=== PATIENT | male | born 1960 | race Caucasian/White ===

== ENCOUNTER 2016-10-13 08:00 | Outpatient (CLI) | payer MEDICAID | END 2016-10-13 23:59 | DX: R30.0 Dysuria (principal) ==

== ENCOUNTER 2017-02-12 14:10 | Outpatient (CLI) | payer MEDICAID ==
--- NOTE | 2017-02-12 16:10 | XRAY Report ---
THREE VIEW RIGHT ANKLE: 02/12/2017 CLINICAL INDICATION: Pain. FINDINGS: AP, lateral, and oblique views of the right ankle demonstrate no evidence of fracture or d islocation. The joint spaces are preserved. No radiopaque foreign body is seen in the soft tissues. IMPRESSION: NORMAL RIGHT ANKLE. :9 JOB #: [id number] EXT JOB #:[id number]
--- NOTE | 2017-02-12 16:14 | XRAY Report ---
THREE VIEW RIGHT FOOT: 02/12/2017 CLINICAL INDICATION: Pain. FINDINGS: AP, lateral, and oblique views of the right foot demonstrate no evidence of fracture or di slocation. The joint spaces are preserved. No radiopaque foreign body is seen in the soft tissues. IMPRESSION: NORMAL RIGHT FOOT. JOB #: [id number] EXT JOB #:[id number]
== END 2017-02-12 14:11 | disposition home or self-care (01) ==
LOC: DI.S 14:10
PROVIDERS: ATTEND Nurse Practitioner Family
DX: M25.571 Pain in right ankle and joints of right foot (principal)

== ENCOUNTER 2017-11-20 08:00 | Outpatient (CLI) | payer MEDICAID | END 2017-11-20 08:01 | disposition home or self-care (01) | LOC: LAB.R 08:00 | PROVIDERS: ATTEND Nurse Practitioner Family | DX: R30.0 Dysuria (principal) | CPT/HCPCS: 87491; 87591 ==

== ENCOUNTER 2017-11-23 08:35 | Outpatient (CLI) | payer MEDICAID ==
[2017-11-23 18:15] LABS: ALBUMIN 4.7 g/dL (3.2-5.5); ALBUMIN/GLOBULIN RATIO 1.8 (1.0-2.2); ALKALINE PHOSPHATASE 53 IU/L (42-121); ALT ALANINE AMINOTRANSFERASE 26 IU/L (10-60); AST ASPARTATE AMINOTRANSFERASE 36 IU/L (10-42); BILIRUBIN,TOTAL 1.6 mg/dL (0.2-1.0); BUN - BLOOD UREA NITROGEN 24 mg/dL (6-20); CALCIUM 9.3 mg/dL (8.5-10.3); CARBON DIOXIDE - CO2 28 mmol/L (21-32); CHLORIDE 102 mmol/L (101-111); CHOL/HDL RATIO 4.1 (<5.0); CHOLESTEROL 168 mg/dL; CREATININE 1.2 mg/dL (0.6-1.2); GFR - MDRD 62 (>89); GLUCOSE 84 mg/dL (70-100); HDL CHOLESTEROL 41 mg/dL; LDL CHOLESTEROL,CALCULATED 116 mg/dL; LDL/HDL RATIO 2.8 (<3.6); SODIUM 137 mmol/L (135-145); TOTAL PROTEIN 7.3 g/dL (6.7-8.2); VLDL CHOLESTEROL 11 mg/dL
== END 2017-11-23 08:36 | disposition home or self-care (01) ==
LOC: LAB.F 08:35
PROVIDERS: ATTEND Nurse Practitioner Family
DX: K74.0 Hepatic fibrosis (principal); Z13.1 Encounter for screening for diabetes mellitus; Z13.220 Encounter for screening for lipoid disorders; Z12.5 Encounter for screening for malignant neoplasm of prostate; R30.0 Dysuria
CPT/HCPCS: 36415; 80053; 80061; 83721; 84153; 87491; 87591

== ENCOUNTER 2018-01-07 10:09 | Outpatient (CLI) | payer MEDICAID ==
[2018-01-07 18:08] LABS: BASOPHILS # (AUTO) 0.1 10^3/uL (0.0-0.1); BASOPHILS % (AUTO) 0.8 %; EOSINOPHILS # (AUTO) 0.1 10^3/uL (0.0-0.7); EOSINOPHILS % (AUTO) 1.1 %; HGB - HEMOGLOBIN 15.2 g/dL (14.0-18.0); LYMPHOCYTES # (AUTO) 2.8 10^3/uL (1.5-3.5); LYMPHOCYTES % (AUTO) 42.1 %; MEAN CORPUSCULAR HEMOGLOBIN 31.7 pg (27.0-31.0); MEAN CORPUSCULAR HGB CONC 33.7 g/dL (32.0-36.0); MEAN PLATELET VOLUME 10.9 fL (7.4-11.4); MONOCYTES # (AUTO) 0.6 10^3/uL (0.0-1.0); MONOCYTES % (AUTO) 8.5 %; NEUTROPHILS # (AUTO) 3.1 10^3/uL (1.5-6.6); NEUTROPHILS % (AUTO) 47.5 %; PLT - PLATELET COUNT 142 10^3/uL (130-450); RED CELL DISTRIBUTION WIDTH 13.5 % (12.0-15.0); WHITE BLOOD COUNT 6.6 x10^3/uL (4.8-10.8)
[2018-01-07 18:21] LABS: ALBUMIN 4.2 g/dL (3.2-5.5); BILIRUBIN,DIRECT 0.2 mg/dL (0.1-0.5); BILIRUBIN,TOTAL 1.2 mg/dL (0.2-1.0); TOTAL PROTEIN 7.2 g/dL (6.7-8.2)
== END 2018-01-07 10:10 | disposition home or self-care (01) ==
LOC: LAB.S 10:09
PROVIDERS: ATTEND Nurse Practitioner Family
DX: K74.0 Hepatic fibrosis (principal); R59.1 Generalized enlarged lymph nodes
CPT/HCPCS: 36415; 80076; 85025

== ENCOUNTER 2018-01-20 14:33 | Outpatient (CLI) | payer MEDICAID ==
--- NOTE | 2018-01-20 19:07 | Ultrasound Report ---
Procedure Date: 01/20/2018 Accession Number: [id number] / [id number] Procedure: US - Pelvic Limited or F/U CPT Code: FULL RESULT: EXAM: INGUINAL ULTRASOUND EXAM DATE: 01/20/2018 03:12 PM. CLINICAL HISTORY: Left inguinal pain. COMPARISON: None. TECHNIQUE: Real-time sonographic imaging of the inguinal canals and vascular structures, including color-flow, was performed by the leather grainer. Multiple benefits representative static images were saved for review. FINDINGS: Hernia: Left inguinal defect measures approximately 0.9 cm. The fat-containing hernia measures approximately 1.4 x 1 cm. No incarcerated bowel. Soft Tissues: Normal. No fluid collections or adenopathy. Other: None. IMPRESSION: Ultrasound is positive for a left inguinal hernia with defect measuring 0.9 cm and the fat-containing hernia measuring 1.4 x 1 cm. RADIA
== END 2018-01-20 14:34 | disposition home or self-care (01) ==
LOC: DI 14:33
PROVIDERS: ATTEND Nurse Practitioner Family
DX: K40.90 Unilateral inguinal hernia, without obstruction or gangrene, not specified as recurrent (principal)
CPT/HCPCS: 76857

== ENCOUNTER 2018-07-29 12:15 | Outpatient (CLI) | payer MEDICAID ==
[2018-07-29 18:59] LABS: ALBUMIN 4.5 g/dL (3.2-5.5); ALBUMIN/GLOBULIN RATIO 1.9 (1.0-2.2); BILIRUBIN,TOTAL 0.8 mg/dL (0.2-1.0); CALCIUM 9.1 mg/dL (8.5-10.3); TOTAL PROTEIN 6.9 g/dL (6.7-8.2)
== END 2018-07-29 12:16 | disposition home or self-care (01) ==
LOC: LAB.F 12:15
PROVIDERS: ATTEND Internal Medicine
DX: B18.2 Chronic viral hepatitis C (principal)
CPT/HCPCS: 36415; 80053; 81599; 85610; 85730; 86803

== ENCOUNTER 2019-03-20 10:13 | Outpatient (CLI) | payer MEDICAID ==
[2019-03-20 17:23] LABS: BASOPHILS # (AUTO) 0.1 10^3/uL (0.0-0.1); BASOPHILS % (AUTO) 0.7 %; EOSINOPHILS # (AUTO) 0.1 10^3/uL (0.0-0.7); EOSINOPHILS % (AUTO) 1.2 %; HGB - HEMOGLOBIN 15.2 g/dL (14.0-18.0); LYMPHOCYTES # (AUTO) 2.6 10^3/uL (1.5-3.5); LYMPHOCYTES % (AUTO) 38.7 %; MEAN CORPUSCULAR HEMOGLOBIN 30.3 pg (27.0-31.0); MEAN CORPUSCULAR HGB CONC 32.1 g/dL (32.0-36.0); MEAN CORPUSCULAR VOLUME 94.2 fL (80.0-94.0); MEAN PLATELET VOLUME 12.3 fL (7.4-11.4); MONOCYTES # (AUTO) 0.6 10^3/uL (0.0-1.0); MONOCYTES % (AUTO) 8.9 %; NEUTROPHILS # (AUTO) 3.4 10^3/uL (1.5-6.6); NEUTROPHILS % (AUTO) 50.5 %; PLT - PLATELET COUNT 179 10^3/uL (130-450); RED BLOOD COUNT 5.02 10^6/uL (4.70-6.10); RED CELL DISTRIBUTION WIDTH 13.6 % (12.0-15.0); WHITE BLOOD COUNT 6.7 x10^3/uL (4.8-10.8)
[2019-03-20 17:43] LABS: ALBUMIN 4.6 g/dL (3.2-5.5); ALBUMIN/GLOBULIN RATIO 1.5 (1.0-2.2); ALKALINE PHOSPHATASE 53 IU/L (42-121); ALT ALANINE AMINOTRANSFERASE 23 IU/L (10-60); AST ASPARTATE AMINOTRANSFERASE 25 IU/L (10-42); BILIRUBIN,TOTAL 1.1 mg/dL (0.2-1.0); BUN - BLOOD UREA NITROGEN 28 mg/dL (6-20); CALCIUM 9.4 mg/dL (8.5-10.3); CARBON DIOXIDE - CO2 28 mmol/L (21-32); CHLORIDE 101 mmol/L (101-111); CHOL/HDL RATIO 2.5 (<5.0); CHOLESTEROL 165 mg/dL; CREATININE 1.1 mg/dL (0.6-1.2); GFR - MDRD 69 (>89); GLUCOSE 96 mg/dL (70-100); HDL CHOLESTEROL 66 mg/dL; LDL CHOLESTEROL,CALCULATED 90 mg/dL; LDL/HDL RATIO 1.4 (<3.6); SODIUM 138 mmol/L (135-145); TOTAL PROTEIN 7.6 g/dL (6.7-8.2); VLDL CHOLESTEROL 9 mg/dL
== END 2019-03-20 10:14 | disposition home or self-care (01) ==
LOC: LAB.S 10:13
PROVIDERS: ATTEND Internal Medicine
DX: Z00.00 Encounter for general adult medical examination without abnormal findings (principal); K74.0 Hepatic fibrosis
CPT/HCPCS: 36415; 80053; 80061; 83721; 85025

== ENCOUNTER 2019-03-28 07:00 | Outpatient (CLI) | payer MEDICAID ==
--- NOTE | 2019-03-28 08:19 | Ultrasound Report ---
Reason: HISTORY OF HEPATITIS, HEPATIC FIBROSIS Procedure Date: 03/28/2019 Accession Number: [id number] / [id number] Procedure: US - Abdomen Limited CPT Code: FULL RESULT: EXAM: ABDOMEN ULTRASOUND LIMITED, RUQ EXAM DATE: 03/28/2019 07:51 AM. CLINICAL HISTORY: History of hepatitis and hepatic fibrosis. COMPARISON: 01/09/2014. TECHNIQUE: Real-time scanning was performed with static images obtained. FINDINGS: Liver: The liver parenchyma is mildly echogenic diffusely. No surface nodularity evident. The right lobe measures 14.0 cm. Main portal vein flow: Hepatopetal. Gallbladder: Normal. No stones, wall thickening, or sonographic Villeda's sign. Biliary System: CBD measures 3 mm. No intrahepatic or extrahepatic ductal dilatation. Other: The right kidney is surgically absent. No ascites. IMPRESSION: 1. Probable mild hepatic fatty infiltration as before. 2. No sonographic evidence for cirrhosis or liver mass lesion. 3. Status post right nephrectomy as before. RADIA
== END 2019-03-28 07:01 | disposition home or self-care (01) ==
LOC: DI 07:00
PROVIDERS: ATTEND Internal Medicine
DX: K74.0 Hepatic fibrosis (principal); Z87.19 Personal history of other diseases of the digestive system; Z90.5 Acquired absence of kidney
CPT/HCPCS: 76705

== ENCOUNTER 2019-06-18 09:53 | Day surgery (SDC) | payer MEDICAID ==
[~2019-06-18 09:53] MED LIST: SODIUM/POTASSIUM/MAG SULFATES 354 ML PREP KIT PO SCH
[2019-06-18] MEDS ORDERED: LACTATED RINGERS 1,000 ML IV ONE (10:26)
[2019-06-18 12:06] VITALS: BP 115/72
== END 2019-06-18 09:54 | disposition home or self-care (01) ==
LOC: SDS 09:53
PROVIDERS: ATTEND Surgery
PROC: 0DJD8ZZ Inspection of Lower Intestinal Tract, Via Natural or Artificial Opening Endoscopic (ICD-10-PCS; principal; 2019-06-18 11:00)
DX: Z12.11 Encounter for screening for malignant neoplasm of colon (principal); B19.20 Unspecified viral hepatitis C without hepatic coma; Z86.010 Personal history of colon polyps; Z87.891 Personal history of nicotine dependence
CPT/HCPCS: 45378; A9270; J7120

== ENCOUNTER 2020-08-04 07:31 | Outpatient (CLI) | payer MEDICAID ==
--- OUTSIDE RECORDS SUMMARY | 2020-08-04 07:35 | EXTERNAL MEDICAL SUMMARY RPT | Continuity of Care Document ---
:1960 Demographics Phone Unavailable Preferred Language Marshallese Marital Status Unknown Restorationist Affiliation Unknown Race Unknown Ethnic Group Unknown Author Organization [place] Address [address] [phone] Phone Care Team Providers Name Role Phone Trent MOSS, Alphonse Unavailable Trent Linares Unavailable Unavailable Vinod Ocampo Unavailable Unavailable Problems date description facility 2020-02-25 09:45 LOW BACK PAIN [facility] 2020-07-21 00:00[facility] 2020-07-21 00:00:00 [facility] mention of alcohol [facility] 2020-07-21 00:00:00 [facility] neoplasms of prostate [facility] 2020-07-21 00:00:00 [facility] 00:00:00 COMPREHENSIVE [facility]ABOLIC [facility]EL [facility] 2020-07-21 00:00:00 Carcinoembryonic Antigen ([facility]A) [facility] 2020-07-21 00:00:00 PSA, SCREENING [facility] 2020-07-21 00:00:00 CBC W/Diff/[facility]t [facility] 2020-07-21 00:00:00 Hepatitis C Virus (HCV) RNA, [facility] Primary Care Qualtitative by PCR [facility] 2020-07-21 00:00:00 [facility]specified [facility] 2020-07-21 00:00:00 [facility] of prostate [facility] 2020-07-21 00:00:00 [facility] 2020-07-21 00:00:00 [facility] 2020-07-21 00:00:00 Light tobacco smoker (finding[facility] 00:00:00 Screening for malignant neoplasm [facility] Primary Care of prostate [facility] Allergies date description facility NO KNOWN ENVIRONMENTAL ALLERGIES [facility] AMOXICILLIN [facility] ITRACONAZOLE [facility] LISINOPRIL [facility] AMOXICILLIN-POT CLAVULANATE [facility] Medications date description facility 2020-07-21 00:00:00 null [facility] Prim tramaine [facility] 2020-07-21 00:00:00 null [facility] Prim tram[facility] 2020-07-21 00:00:00 C[facility]IRIZINE HCL [facility] 00:00:[facility]INE [facility] date description facility 2020-07-21 00:00:00 Light tobacco smoker (finding) [facility] Primary Care [facility] Social History date description facility 2020-07-21 00:00:00 Light tobacco smoker (finding) [facility] Primary Care [facility] date description facility [id number]
--- NOTE | 2020-08-04 10:03 | Ultrasound Report ---
PROCEDURE: Abdomen Limited INDICATIONS: LIVER CIRRHOSIS TECHNIQUE: Real-time focused scanning was performed of the right upper quadrant, with image documentation. COMPARISON: Limited abdominal ultrasound 03/26/2020, 03/28/2019. FINDINGS: The liver is diffusely increased in echogenicity with coarse sonographic echotexture. No discrete hep atic mass identified. Gallbladder appears within normal limits without gallstones or wall thickening. No intra- or extrahepatic biliary ductal dilatation. The right kidney is surgically absent. IMPRESSION: 1. No discrete hepatic mass identified. 2. Nonspecific increased hepatic echogenicity and coarse sonographic echotexture compatible with georgina ent's reported history of cirrhosis. Reviewed by: Faisal Garrido MD on 08/04/2020 10:01 AM PST Approved by: Faisal Garrido MD on 08/04/2020 10:01 AM PST Station ID: [id number]
== END 2020-08-04 07:32 | disposition home or self-care (01) ==
LOC: DI 07:31
PROVIDERS: ATTEND Internal Medicine
DX: K74.60 Unspecified cirrhosis of liver (principal)

== ENCOUNTER 2020-08-09 07:47 | Outpatient (CLI) | payer MEDICAID ==
[2020-08-09 15:31] LABS: BASOPHILS # (AUTO) 0.1 10^3/uL (0.0-0.1); EOSINOPHILS # (AUTO) 0.1 10^3/uL (0.0-0.7); EOSINOPHILS % (AUTO) 1.8 %; HGB - HEMOGLOBIN 14.9 g/dL (14.0-18.0); LYMPHOCYTES # (AUTO) 1.8 10^3/uL (1.5-3.5); LYMPHOCYTES % (AUTO) 29.2 %; MEAN CORPUSCULAR HEMOGLOBIN 30.7 pg (27.0-31.0); MEAN CORPUSCULAR HGB CONC 32.7 g/dL (32.0-36.0); MEAN CORPUSCULAR VOLUME 93.8 fL (80.0-94.0); MEAN PLATELET VOLUME 12.1 fL (7.4-11.4); MONOCYTES # (AUTO) 0.5 10^3/uL (0.0-1.0); MONOCYTES % (AUTO) 7.8 %; NEUTROPHILS # (AUTO) 3.6 10^3/uL (1.5-6.6); PLT - PLATELET COUNT 168 10^3/uL (130-450); RED BLOOD COUNT 4.86 10^6/uL (4.70-6.10); RED CELL DISTRIBUTION WIDTH 12.7 % (12.0-15.0)
[2020-08-09 16:02] LABS: ALBUMIN 4.4 g/dL (3.2-5.5); ALBUMIN/GLOBULIN RATIO 1.8 (1.0-2.2); BILIRUBIN,TOTAL 1.2 mg/dL (0.2-1.0); CALCIUM 9.3 mg/dL (8.5-10.3); CREATININE 1.1 mg/dL (0.6-1.2); TOTAL PROTEIN 6.9 g/dL (6.7-8.2)
[2020-08-11 12:41] LABS: HAPTOGLOBIN 89 mg/dL (43-212)
[2020-08-14 00:27] LABS: HEPATITIS C VIRAL RNA GENOTYPE NOT DETECTED
== END 2020-08-09 07:48 | disposition home or self-care (01) ==
LOC: LAB.S 07:47
PROVIDERS: ATTEND Internal Medicine
DX: K74.60 Unspecified cirrhosis of liver (principal); Z12.5 Encounter for screening for malignant neoplasm of prostate
CPT/HCPCS: 36415; 80053; 81599; 82172; 82378; 82465; 82977; 83010; 83883; 84153; 84478; 85025; 87902

== ENCOUNTER 2021-02-10 06:53 | Outpatient (CLI) | payer MEDICAID ==
[2021-02-10 07:41] LABS: BASOPHILS # (AUTO) 0.1 10^3/uL (0.0-0.1); BASOPHILS % (AUTO) 0.6 %; EOSINOPHILS # (AUTO) 0.2 10^3/uL (0.0-0.7); HGB - HEMOGLOBIN 15.2 g/dL (14.0-18.0); LYMPHOCYTES # (AUTO) 2.1 10^3/uL (1.5-3.5); LYMPHOCYTES % (AUTO) 27.1 %; MEAN CORPUSCULAR HEMOGLOBIN 31.2 pg (27.0-31.0); MEAN CORPUSCULAR VOLUME 94.5 fL (80.0-94.0); MEAN PLATELET VOLUME 11.2 fL (7.4-11.4); MONOCYTES # (AUTO) 0.7 10^3/uL (0.0-1.0); NEUTROPHILS # (AUTO) 4.8 10^3/uL (1.5-6.6); PLT - PLATELET COUNT 174 10^3/uL (130-450); RED BLOOD COUNT 4.87 10^6/uL (4.70-6.10); WHITE BLOOD COUNT 7.8 x10^3/uL (4.8-10.8)
[2021-02-10 07:46] LABS: ALBUMIN 4.5 g/dL (3.2-5.5); ALBUMIN/GLOBULIN RATIO 1.7 (1.0-2.2); ALKALINE PHOSPHATASE 57 IU/L (42-121); ALT ALANINE AMINOTRANSFERASE 24 IU/L (10-60); AST ASPARTATE AMINOTRANSFERASE 32 IU/L (10-42); BILIRUBIN,TOTAL 0.9 mg/dL (0.2-1.0); BUN - BLOOD UREA NITROGEN 26 mg/dL (6-20); CALCIUM 9.3 mg/dL (8.5-10.3); CARBON DIOXIDE - CO2 28 mmol/L (21-32); CHLORIDE 105 mmol/L (101-111); CHOL/HDL RATIO 2.7 (<5.0); CHOLESTEROL 159 mg/dL; CREATININE 1.2 mg/dL (0.6-1.2); GFR - MDRD 62 (>89); GLUCOSE 105 mg/dL (70-100); HDL CHOLESTEROL 59 mg/dL; LDL CHOLESTEROL,CALCULATED 89 mg/dL; LDL/HDL RATIO 1.5 (<3.6); SODIUM 139 mmol/L (135-145); TOTAL PROTEIN 7.1 g/dL (6.7-8.2); TRIGLYCERIDES 56 mg/dL; VLDL CHOLESTEROL 11 mg/dL
== END 2021-02-10 06:54 | disposition home or self-care (01) ==
LOC: LAB 06:53
PROVIDERS: ATTEND Internal Medicine
DX: K74.00 Hepatic fibrosis, unspecified (principal)
CPT/HCPCS: 36415; 80053; 80061; 81596; 81599; 83721; 85025

== ENCOUNTER 2021-02-14 06:56 | Outpatient (CLI) | payer MEDICAID ==
--- NOTE | 2021-02-14 09:05 | Ultrasound Report ---
PROCEDURE: Abdomen Limited INDICATIONS: Hepatic FIBROSIS TECHNIQUE: Real-time scanning was performed of the abdominal organs, with image documentation. COMPARISON: 08/04/2020 FINDINGS: Liver: Liver is normal in size. Parenchyma is mildly heterogeneous and echogenic. No discrete mass. There is appropriate direction of flow in the portal vein. Gallbladder: The gallbladder is normal without stones or sludge. Normal wall thickness at 1.7 mm. No pericholecystic fluid. Biliary ducts: Intrahepatic bile ducts are non-dilated. Extrahepatic bile duct caliber measures 3 m m. Normal is 6-7 mm or less in diameter, or 10 mm or less post-cholecystectomy. Pancreas: Visualized portions of the pancreas are sonographically normal. Miscellaneous: No free abdominal fluid. The right kidney is surgically absent. IMPRESSION: 1. Heterogeneously hyperechoic hepatic echotexture consistent with history of fibrosis, stable compar ed to the prior study. 2. No discrete mass. Reviewed by: Claire Carrasquillo MD on 02/14/2021 9:04 AM PDT Approved by: Claire Carrasquillo MD on 02/14/2021 9:04 AM PDT Station ID: [id number]
== END 2021-02-14 06:57 | disposition home or self-care (01) ==
LOC: DI 06:56
PROVIDERS: ATTEND Internal Medicine
DX: K74.00 Hepatic fibrosis, unspecified (principal)

== ENCOUNTER 2021-03-03 14:19 | Outpatient (CLI) | payer MEDICAID | END 2021-03-03 14:20 | disposition home or self-care (01) | LOC: LAB 14:19 | PROVIDERS: ATTEND Internal Medicine | DX: Z01.84 Encounter for antibody response examination (principal); Z53.9 Procedure and treatment not carried out, unspecified reason | CPT/HCPCS: 36415; 86769 ==

== ENCOUNTER 2021-03-14 14:22 | Outpatient (CLI) | payer MEDICAID | END 2021-03-14 14:23 | disposition home or self-care (01) | LOC: LAB 14:22 | PROVIDERS: ATTEND Internal Medicine | DX: Z01.84 Encounter for antibody response examination (principal) | CPT/HCPCS: 36415; 86769 ==

== ENCOUNTER 2021-09-15 07:56 | Outpatient (CLI) | payer MEDICAID ==
[2021-09-15 09:18] LABS: BASOPHILS # (AUTO) 0.1 10^3/uL (0.0-0.1); BASOPHILS % (AUTO) 0.7 %; EOSINOPHILS # (AUTO) 0.1 10^3/uL (0.0-0.7); EOSINOPHILS % (AUTO) 1.2 %; HCT - HEMATOCRIT 49.2 % (42.0-52.0); HGB - HEMOGLOBIN 16.7 g/dL (14.0-18.0); LYMPHOCYTES # (AUTO) 2.1 10^3/uL (1.5-3.5); LYMPHOCYTES % (AUTO) 24.1 %; MEAN CORPUSCULAR HEMOGLOBIN 31.2 pg (27.0-31.0); MEAN CORPUSCULAR HGB CONC 33.9 g/dL (32.0-36.0); MEAN CORPUSCULAR VOLUME 91.8 fL (80.0-94.0); MEAN PLATELET VOLUME 11.4 fL (7.4-11.4); MONOCYTES # (AUTO) 0.6 10^3/uL (0.0-1.0); MONOCYTES % (AUTO) 7.3 %; NEUTROPHILS # (AUTO) 5.7 10^3/uL (1.5-6.6); NEUTROPHILS % (AUTO) 66.5 %; PLT - PLATELET COUNT 184 10^3/uL (130-450); RED BLOOD COUNT 5.36 10^6/uL (4.70-6.10); RED CELL DISTRIBUTION WIDTH 12.6 % (12.0-15.0); WHITE BLOOD COUNT 8.6 x10^3/uL (4.8-10.8)
[2021-09-15 09:32] LABS: ALBUMIN 4.8 g/dL (3.2-5.5); ALBUMIN/GLOBULIN RATIO 1.7 (1.0-2.2); BILIRUBIN,TOTAL 1.5 mg/dL (0.2-1.0); CALCIUM 9.7 mg/dL (8.5-10.3); CREATININE 1.2 mg/dL (0.6-1.2); POTASSIUM 4.9 mmol/L (3.5-5.0); TOTAL PROTEIN 7.6 g/dL (6.7-8.2)
--- NOTE | 2021-09-15 15:48 | Ultrasound Report ---
PROCEDURE: Abdomen Complete INDICATIONS: HEPATIC FIBROSIS TECHNIQUE: Real-time scanning was performed of the abdominal and retroperitoneal organs, with image documentatio n. COMPARISON: None. FINDINGS: Liver: Liver is normal in size and homogeneous in echotexture. Gallbladder: Gallbladder sonographically normal. No gallstones. Gallbladder wall measures 1.7 mm. Biliary ducts: Intrahepatic bile ducts are non-dilated. Extrahepatic bile duct caliber measures 3.8 mm. Normal is 6-7 mm or less in diameter, or 10 mm or less post-cholecystectomy. Pancreas: Visualized portions of the pancreas are sonographically normal. Spleen: Spleen is normal in size and homogeneous in echotexture. Kidneys: Right kidney is surgically absent. Left kidney measures 13.4 cm long. No hydronephrosis or nephrolithiasis. No solid masses. 3.6 x 3.2 x 4.1 cm left renal cyst Aorta: Visualized aorta is normal in caliber at less than 3 cm. Iliacs: Proximal common iliac arteries are normal in caliber at less than 2.5 cm. IVC: Intrahepatic inferior vena cava is patent. Miscellaneous: No free abdominal fluid. IMPRESSION: No abnormal hepatic mass. Right nephrectomy. Reviewed by: Lorenza Drew MD, PhD on 09/15/2021 3:46 PM PST Approved by: Lorenza Drew MD, PhD on 09/15/2021 3:46 PM PST Station ID: [id number]
== END 2021-09-15 07:57 | disposition home or self-care (01) ==
LOC: DI 07:56
PROVIDERS: ATTEND Internal Medicine
DX: K74.00 Hepatic fibrosis, unspecified (principal); Z90.5 Acquired absence of kidney
CPT/HCPCS: 36415; 80053; 81599; 85025

== ENCOUNTER 2022-05-26 11:49 | Outpatient (CLI) | payer MEDICAID | END 2022-05-26 11:50 | disposition home or self-care (01) | LOC: LAB 11:49 | PROVIDERS: ATTEND Physician Assistant | DX: K74.02 Hepatic fibrosis, advanced fibrosis (principal) ==

== ENCOUNTER 2022-05-29 14:07 | Outpatient (CLI) | payer MEDICAID ==
[2022-05-29 14:29] LABS: BASOPHILS # (AUTO) 0.1 10^3/uL (0.0-0.1); BASOPHILS % (AUTO) 0.6 %; EOSINOPHILS # (AUTO) 0.1 10^3/uL (0.0-0.7); EOSINOPHILS % (AUTO) 0.8 %; HGB - HEMOGLOBIN 14.9 g/dL (14.0-18.0); LYMPHOCYTES # (AUTO) 2.7 10^3/uL (1.5-3.5); LYMPHOCYTES % (AUTO) 34.5 %; MEAN CORPUSCULAR HEMOGLOBIN 30.5 pg (27.0-31.0); MEAN CORPUSCULAR HGB CONC 33.1 g/dL (32.0-36.0); MEAN PLATELET VOLUME 11.3 fL (7.4-11.4); MONOCYTES # (AUTO) 0.6 10^3/uL (0.0-1.0); MONOCYTES % (AUTO) 8.3 %; NEUTROPHILS # (AUTO) 4.3 10^3/uL (1.5-6.6); NEUTROPHILS % (AUTO) 55.5 %; PLT - PLATELET COUNT 188 10^3/uL (130-450); RED BLOOD COUNT 4.89 10^6/uL (4.70-6.10); RED CELL DISTRIBUTION WIDTH 12.8 % (12.0-15.0); WHITE BLOOD COUNT 7.7 x10^3/uL (4.8-10.8)
[2022-05-29 15:27] LABS: ALBUMIN 5.1 g/dL (3.2-5.5); ALBUMIN/GLOBULIN RATIO 1.8 (1.0-2.2); BILIRUBIN,TOTAL 1.5 mg/dL (0.2-1.0); CALCIUM 9.5 mg/dL (8.5-10.3); CREATININE 1.1 mg/dL (0.6-1.2); POTASSIUM 4.2 mmol/L (3.5-5.0); TOTAL PROTEIN 7.9 g/dL (6.7-8.2)
== END 2022-05-29 14:08 | disposition home or self-care (01) ==
LOC: LAB 14:07
PROVIDERS: ATTEND Physician Assistant
DX: K74.02 Hepatic fibrosis, advanced fibrosis (principal)
CPT/HCPCS: 36415; 80053; 81599; 82977; 85025

== ENCOUNTER 2022-06-09 14:40 | Outpatient (CLI) | payer MEDICAID | END 2022-06-09 14:41 | disposition home or self-care (01) | LOC: LAB 14:40 | PROVIDERS: ATTEND Physician Assistant | DX: K74.02 Hepatic fibrosis, advanced fibrosis (principal) | CPT/HCPCS: 81599 ==

== ENCOUNTER 2022-07-31 07:38 | Outpatient (CLI) | payer MEDICAID ==
--- NOTE | 2022-07-31 09:32 | Ultrasound Report ---
PROCEDURE: Abdomen Complete INDICATIONS: HEPATIC FIBROSIS TECHNIQUE: Real-time scanning was performed of the abdominal and retroperitoneal organs, with image documentatio n. COMPARISON: None. FINDINGS: Liver: Liver is normal in size and homogeneous in echotexture. Gallbladder: The bladder wall is normal in thickness. No gallbladder sludge nor calculi. Biliary ducts: Intrahepatic bile ducts are non-dilated. Extrahepatic bile duct caliber measures 4 m m. Normal is 6-7 mm or less in diameter, or 10 mm or less post-cholecystectomy. Pancreas: Visualized portions of the pancreas are sonographically normal. Spleen: Spleen is normal in size and homogeneous in echotexture. Kidneys: Right kidney is surgically absent. Left renal cyst measuring 42 mm is present. Left kidney m easures 14 cm. Left renal cortical thickness of 22 mm. Aorta: Visualized aorta is normal in caliber at less than 3 cm. Iliacs: Proximal common iliac arteries are normal in caliber at less than 2.5 cm. IVC: Intrahepatic inferior vena cava is patent. Miscellaneous: No free abdominal fluid. IMPRESSION: 1. Post surgical sequelae. 2. No acute process. Reviewed by: Mavis Mendenhall MD on 07/31/2022 9:31 AM PST Approved by: Mavis Mendenhall MD on 07/31/2022 9:31 AM PST Station ID: [id number]
== END 2022-07-31 07:39 | disposition home or self-care (01) ==
LOC: DI 07:38
PROVIDERS: ATTEND Physician Assistant
DX: K74.02 Hepatic fibrosis, advanced fibrosis (principal)

== ENCOUNTER 2022-08-11 08:00 | Outpatient (CLI) | payer MEDICAID ==
[2022-08-11 18:40] LABS: BILIRUBIN,URINE NEGATIVE (NEGATIVE); GLUCOSE, URINE (UA) NEGATIVE (NEGATIVE); KETONES,URINE (UA) NEGATIVE (NEGATIVE); LEUKOCYTE ESTERASE, URINE NEGATIVE (NEGATIVE); NITRITE,URINE NEGATIVE (NEGATIVE); OCCULT BLOOD,URINE NEGATIVE (NEGATIVE); PROTEIN,URINE NEGATIVE (NEGATIVE); UROBILINOGEN,URINE 0.2 (NORMAL) E.U./dL (NORMAL)
[2022-08-11 18:49] LABS: CLARITY,URINE CLEAR (CLEAR)
[2022-08-11 19:32] LABS: BACTERIA,URINE None Seen /HPF (None Seen); RBC,URINE None Seen /HPF (0-5); SQUAMOUS EPITHELIAL CELL,UR NONE SEEN (<= Few); WBC,URINE 0-3 /HPF (0-3)
== END 2022-08-11 23:59 | disposition home or self-care (01) ==
LOC: LAB.N 08:00
PROVIDERS: ATTEND Physician Assistant
DX: R36.1 Hematospermia (principal)
CPT/HCPCS: 81001; 87086

== ENCOUNTER 2022-08-14 11:53 | Outpatient (CLI) | payer MEDICAID | END 2022-08-14 11:54 | disposition home or self-care (01) | LOC: LAB 11:53 | PROVIDERS: ATTEND Physician Assistant | DX: R36.1 Hematospermia (principal) | CPT/HCPCS: 36415; 84153 ==

== ENCOUNTER 2023-01-03 11:18 | Outpatient (CLI) | payer MEDICAID ==
[2023-01-03 12:08] LABS: BASOPHILS # (AUTO) 0.1 10^3/uL (0.0-0.1); BASOPHILS % (AUTO) 0.8 %; EOSINOPHILS # (AUTO) 0.1 10^3/uL (0.0-0.7); HCT - HEMATOCRIT 45.8 % (42.0-52.0); HGB - HEMOGLOBIN 15.2 g/dL (14.0-18.0); LYMPHOCYTES # (AUTO) 2.6 10^3/uL (1.5-3.5); LYMPHOCYTES % (AUTO) 41.2 %; MEAN CORPUSCULAR HEMOGLOBIN 30.7 pg (27.0-31.0); MEAN CORPUSCULAR HGB CONC 33.2 g/dL (32.0-36.0); MEAN CORPUSCULAR VOLUME 92.5 fL (80.0-94.0); MEAN PLATELET VOLUME 11.1 fL (7.4-11.4); MONOCYTES # (AUTO) 0.6 10^3/uL (0.0-1.0); MONOCYTES % (AUTO) 9.4 %; NEUTROPHILS # (AUTO) 2.9 10^3/uL (1.5-6.6); NEUTROPHILS % (AUTO) 47.4 %; PLT - PLATELET COUNT 197 10^3/uL (130-450); RED BLOOD COUNT 4.95 10^6/uL (4.70-6.10); RED CELL DISTRIBUTION WIDTH 13.2 % (12.0-15.0); WHITE BLOOD COUNT 6.2 x10^3/uL (4.8-10.8)
[2023-01-03 12:11] LABS: ALBUMIN 4.5 g/dL (3.2-5.5); ALBUMIN/GLOBULIN RATIO 1.7 (1.0-2.2); ALKALINE PHOSPHATASE 45 IU/L (42-121); ALT ALANINE AMINOTRANSFERASE 24 IU/L (10-60); AST ASPARTATE AMINOTRANSFERASE 29 IU/L (10-42); BILIRUBIN,TOTAL 1.2 mg/dL (0.2-1.0); BUN - BLOOD UREA NITROGEN 24 mg/dL (6-20); CALCIUM 9.5 mg/dL (8.5-10.3); CARBON DIOXIDE - CO2 29 mmol/L (21-32); CHLORIDE 106 mmol/L (101-111); CHOL/HDL RATIO 2.3 (<5.0); CHOLESTEROL 162 mg/dL; CREATININE 1.1 mg/dL (0.6-1.2); GFR - MDRD 68 (>89); GLUCOSE 111 mg/dL (70-100); HDL CHOLESTEROL 71 mg/dL; LDL CHOLESTEROL,CALCULATED 83 mg/dL; LDL/HDL RATIO 1.2 (<3.6); POTASSIUM 4.3 mmol/L (3.5-5.0); SODIUM 140 mmol/L (135-145); TOTAL PROTEIN 7.1 g/dL (6.7-8.2); TRIGLYCERIDES 41 mg/dL; VLDL CHOLESTEROL 8 mg/dL
[2023-01-03 21:06] LABS: ESTIMATED AVERAGE GLUCOSE 123 mg/dL (70-100); HEMOGLOBIN A1c% 5.9 % (4.27-6.07)
== END 2023-01-03 11:19 | disposition home or self-care (01) ==
LOC: LAB 11:18
PROVIDERS: ATTEND Physician Assistant
DX: K74.02 Hepatic fibrosis, advanced fibrosis (principal); Z12.5 Encounter for screening for malignant neoplasm of prostate; R73.01 Impaired fasting glucose
CPT/HCPCS: 36415; 80053; 80061; 83036; 83721; 84153; 85025

== ENCOUNTER 2023-07-02 06:55 | Outpatient (CLI) | payer MEDICAID ==
--- NOTE | 2023-07-02 16:48 | Ultrasound Report ---
PROCEDURE: Abdomen Complete INDICATIONS: HEPATIC FIBROSIS TECHNIQUE: Real-time scanning was performed of the abdominal and retroperitoneal organs, with image documentatio n. COMPARISON: Ultrasound abdomen 07/31/2022 FINDINGS: Liver: Liver is normal in size and increased in echotexture. Gallbladder: Unremarkable. Biliary ducts: Intrahepatic bile ducts are non-dilated. Extrahepatic bile duct caliber measures 4.1 mm. Normal is 6-7 mm or less in diameter, or 10 mm or less post-cholecystectomy. Pancreas: Visualized portions of the pancreas are sonographically normal. Spleen: Spleen is normal in size and homogeneous in echotexture. Kidneys: Right kidney is been removed. Left kidney measures 13.6 cm. Simple cysts identified on the l eft the largest measuring 4.4 cm. No obstruction. Aorta: Visualized aorta is normal in caliber at less than 3 cm. Iliacs: Proximal common iliac arteries are normal in caliber at less than 2.5 cm. IVC: Intrahepatic inferior vena cava is patent. Miscellaneous: No free abdominal fluid. IMPRESSION: Right nephrectomy. Left kidney demonstrates simple cysts. No focal hepatic mass. Diffuse steatosis is present. Reviewed by: Beatriz Juan MD on 07/02/2023 4:46 PM PST Approved by: Beatriz Juan MD on 07/02/2023 4:46 PM PST Station ID: [id number]
== END 2023-07-02 06:56 | disposition home or self-care (01) ==
LOC: DI 06:55
PROVIDERS: ATTEND Physician Assistant
DX: K74.02 Hepatic fibrosis, advanced fibrosis (principal); N28.1 Cyst of kidney, acquired; K76.0 Fatty (change of) liver, not elsewhere classified; Z90.5 Acquired absence of kidney